=== PATIENT | male | born 1995 | race Caucasian/White ===

== ENCOUNTER 2016-11-21 10:59 | Emergency (ER) | payer OTHER ==
[~2016-11-21] VITALS: Ht 185.4 cm; Wt 145.2 kg
[~2016-11-21 10:59] MED LIST: POLYTRIM EYE DR10 ML OPH
[2016-11-21 11:02] VITALS: BP 192/102
--- NOTE | 2016-11-21 11:36 | ED ANKLE/FOOT INJURY COMPLAINT ---
History of Present Illness General Chief Complaint: Foot or Ankle Injury Stated Complaint: L FT INJURY Source: patient, family, old records Exam Limitations: no limitations Vital Signs & Intake/Output Vital Signs & Intake/Output Vital Signs Date Time Temp Pulse Resp B/P Pulse O2 O2 Flow FiO2 Ox Delivery Rate 11/21 1204 Room Air Room Air 11/21 1102 98.9 104 20 192/102 98 Room Air Allergies Coded Allergies: NO KNOWN ALLERGIES (01/13/16) Reconcile Medications Polytrim (Polytrim Eye Drops) 10 ML DROPS 1 GTT OPH Q6 . X 5 DAYS Triage Note: PT TO ED C/O LEFT FOOT PAIN S/P FALLING DOWN A FEW STAIRS YESTERDAY. STATES HE LANDED FLAT ON LEFT FOOT. DENIES HEAD STRIKE. PT STATES PREVIOUS FRACTURE TO LEFT FOOT "A LONG TIME AGO". PT ARRIVES TO ED WITH OWN CRUTCHES. REFUSING MEDS IN TRIAGE. Triage Nurses Notes Reviewed? yes Occurred: yesterday Duration: day(s): (2), constant Timing: recent history Severity: moderate Severity Numbers: 5 Pain/Injury Location: Left: Foot. Method of Injury: fall Modifying Factors: Improves With: rest. Worsens With: movement. Associated Symptoms: swelling HPI: This is a 21-year-old male with previous left foot fracture several years ago presents to the emergency room after he states he fell down a few stairs last night and now presents complaining of lateral left foot pain aching throbbing 5 out of 10. He is been using his crutches with improvement however states is been unable to bear weight secondary to pain. He denies any ankle knee or hip pain and no numbness or tingling. Did not hit his head with the fall there is no neck or back pain. Has been taking ibuprofen with improvement in his symptoms. Past History Travel History Traveled to [place] past 21 day No Medical History Any Pertinent Medical History? see below for history Neurological: NONE EENT: NONE Cardiovascular: NONE Respiratory: NONE Gastrointestinal: NONE Hepatic: NONE Renal: NONE Musculoskeletal: NONE Psychiatric: NONE Endocrine: NONE Blood Disorders: NONE Cancer(s): NONE NURSE MIDWIFE/Reproductive: NONE Tetanus Vaccine: 01/13/16 Surgical History Surgical History: N Psychosocial History What is your primary language Greek Tobacco Use: Current Daily Use Daily Tobacco Use Amount/Type: => 5 Cigarettes daily ETOH Use: occasional use Illicit Drug Use: denies illicit drug use Family History Hx Contributory? No Review of Systems Review of Systems Constitutional: Reports: see HPI. All Other Systems: Reviewed and Negative Comments Review of systems: See HPI, All other systems negative. Constitutional, no chills no fever, no malaise HEENT: No visual changes no sore throat no congestion Cardiovascular: No chest pain , no palpitation Skin, no rashes, no change in skin Respiratory: No dyspnea no cough no sputum GI: No nausea no vomiting, no diarrhea, : No dysuria Muscle skeletal: joint pain, joint swelling, no back pain, no neck pain, Neurologic: no headache Psych: No stress Heme/endocrine: No bruising no bleeding Immunology: No lymphadenopathy Physical Exam Physical Exam General Appearance: well developed/nourished, no apparent distress, alert, awake , comfortable Leg/Knee/Thigh Left: normal range of motion Comments: Well-developed well-nourished patient in no apparent distress. HEENT: Atraumatic, extraocular motion intact Neck: Supple, FROM, no lymphadenopathy Back: FROM, Nontender Cardiovascular: Regular rate and rhythms no murmurs rubs or gallops, Respiratory: Chest nontender.There were no bony deformities, no asymmetry. No respiratory distress. Patient speaking in full complete sentences. Breath sounds clear to auscultation bilaterally: NO W/R/R Upper Extremities: full range of motion Hip/Pelvis: Atraumatic/Stable. FROM. Knee: Atraumatic/stable. FROM. No joint swelling, no effusion. No laxity. No pain with ROM Leg: Atraumatic. No proximal tib-fib tenderness Nontender. No edema, 5 out of 5 strength in the lower extremity, normal dorsiflexion of great toe bilaterally, gross sensation is intact Ankle/Foot: Moderate swelling over the dorsum of the left lateral podiatric foot and ankle specialist to palpation, positive ecchymosis skin is intact, the ankle is nontender with full range of motion, full range motion of all toes neurovascularly intact refill within normal limits, No laxity on exam Pulses: Normal/equal DP/PT pulses bilaterally. Brisk cap refill Neuro: Alert and oriented x3 Skin: Warm & dry;No appreciable rash on exposed skin Psych: Mood affect normal, normal memory normal judgment. Progress Differential Diagnosis: fracture, dislocation, sprain, contusion, compartmental syndrome Plan of Care: Orders Procedure Date/time Status XRY-FOOT COMPLETE, LEFT 11/21 1138 Active X-rays ordered patient declining any throat pain when offered Discussed with him his x-ray results, posterior splint was applied by me, Pt neurovascularly intact prior to and after application of splint he'll follow up with orthopedic doctor provided, patient has crutches already I discussed with plan. They feel comfortable plan he is declining anything stronger for pain when offered he feels comfortable cleared for discharge (TAMIA CADET,NITISH) Diagnostic Imaging: Viewed by Me: Radiology Read. Discussed w/RAD: Radiology Read. Radiology Impression: PATIENT: ELPIDIO SLAUGHTER PRESENT AGE: 21 PATIENT ACCOUNT NO: [id number] : 94 LOCATION: [facility] ORDERING PHYSICIAN: NITISH CADET SERVICE DATE: 11/21/16-1138 EXAM TYPE: RAD - XRY-FOOT COMPLETE, LEFT EXAMINATION: XR FOOT, LEFT CLINICAL INFORMATION: Fall with pain in left foot. Evaluate for fracture. The patient reports a fall 1 day ago with left foot pain, bruising, swelling. COMPARISON: None TECHNIQUE: AP, lateral, and oblique views of the left foot. FINDINGS: There is a nondisplaced transverse and slightly oblique fracture of the proximal diaphysis of the 5th metatarsal. There is an accessory ossicle versus old avulsion fracture of the base of the 5th metatarsal. There is an old healed angulated fracture of the proximal diaphysis of the 4th metatarsal. IMPRESSION: 1. Acute nondisplaced fracture of the proximal 5th metatarsal diaphysis. 2. Old healed angulated fracture of the proximal 4th metatarsal diaphysis. 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 <Electronically signed in Other Vendor System> SIGNED BY: JULIETTE RUBI MD 11/21/16 1258 Departure Departure Time of Disposition: 1226 Disposition: HOME OR SELF CARE Condition: Stable Clinical Impression Primary Impression: Foot fracture, left Referrals: PATIENT HAS NO PRIMARY CARE DR (PCP/Family) BENNY TIPTON MD Additional Instructions: FOLLOW UP WITH DR TIPTON ORTHOPEDIST THIS WEEK. KEEP SPLINT ON AT ALL TIMES UNTIL SEEN BY ORTHOPEDIST. REST, ICE, KEEP LEG ELEVATED, CRUTCHES WHEN AMBULATORY. TYLENOL OR MOTRIN FOR PAIN. RETURN WITH ANY CONCERNS Departure Forms: Customer Survey General Discharge Information Procedures Splinting Location: lle Manual Alignment Performed: No Hand-Made Type: orthoglass Splint: posterior walking Splint Applied By: splint applied by me Pre-Proc Neuro Vasc Exam: normal Post-Proc Neuro Vasc Exam: normal
--- NOTE | 2016-11-21 12:58 | RADIOLOGY REPORT ---
EXAMINATION: XR FOOT, LEFT CLINICAL INFORMATION: Fall with pain in left foot. Evaluate for fracture. The patient reports a fall 1 day ago with left foot pain, bruising, swelling. COMPARISON: None TECHNIQUE: AP, lateral, and oblique views of the left foot. FINDINGS: There is a nondisplaced transverse and slightly oblique fracture of the proximal diaphysis of the 5th metatarsal. There is an accessory ossicle versus old avulsion fracture of the base of the 5th metatarsal. There is an old healed angulated fracture of the proximal diaphysis of the 4th metatarsal. IMPRESSION: 1. Acute nondisplaced fracture of the proximal 5th metatarsal diaphysis. 2. Old healed angulated fracture of the proximal 4th metatarsal diaphysis.
== END 2016-11-21 12:47 ==
LOC: ERH 10:59
DX: S92.352A Displaced fracture of fifth metatarsal bone, left foot, initial encounter for closed fracture (principal); W10.9XXA Fall (on) (from) unspecified stairs and steps, initial encounter
CPT/HCPCS: 73630-LT